=== PATIENT | female | born 1945 | race Two or more races ===

== ENCOUNTER 2025-04-04 09:28 | Emergency (ER) | payer OTHER ==
[~2025-04-04] VITALS: Ht 160 cm; Wt 63.5 kg
[2025-04-04] MEDS ORDERED: SYNTHROID75 MCG PO (09:45)
[2025-04-04] MEDS ORDERED: LOSARTAN POTASS50 MG PO (09:45)
[2025-04-04] MEDS ORDERED: SIMVASTATIN40 MG PO (09:46)
[2025-04-04] MEDS ORDERED: RINGERS SOLUTION,LACTATED 1,000 ML IV STA (10:05)
[2025-04-04] MEDS ORDERED: CIPROFLOXACIN IN 5 % DEXTROSE 400 MG/200 ML PIGGYBAG IV STA (10:06)
[2025-04-04] MEDS ORDERED: METRONIDAZOLE/SODIUM CHLORIDE 500 MG/100 ML PIGGYBACK IV STA (10:06)
[2025-04-04] MEDS ORDERED: MORPHINE SULFATE 4 MG/ML VIAL IV STA (10:07)
[2025-04-04] MEDS ORDERED: METRONIDAZOLE/SODIUM CHLORIDE 500 MG/100 ML PIGGYBACK IV ONE ×2 (10:17→10:18)
[2025-04-04] MEDS ORDERED: CIPROFLOXACIN IN 5 % DEXTROSE 400 MG/200 ML PIGGYBAG IV ONE (10:17)
[2025-04-04] MEDS ORDERED: HYOSCYAMINE SULFATE 0.125 MG TAB.SUBL SL STA (10:26)
[2025-04-04] MEDS ORDERED: HYOSCYAMINE SULFATE 0.125 MG TAB.SUBL ONE (10:52)
[2025-04-04 10:56] LABS: BASO % 0.3 % (0.1-1.2); EOS # 0.12 (0.04-0.54); HEMATOCRIT 35.5 % (34.1-44.9); HEMOGLOBIN 12.2 g/dL (11.2-15.7); LYMPH # 1.42 (1.18-3.74); LYMPH % 12.1 % (19.3-53.1); MEAN CORPUSCULAR HEMOGLOBIN 29.3 pg (25.6-32.2); NEUT % 80.3 % (34.0-71.1); PLATELET COUNT 213 K/uL (163-369); RED BLOOD COUNT 4.16 M/uL (3.93-5.22); RED CELL DISTRIBUTION WIDTH 13.6 % (11.6-14.4)
[2025-04-04 12:05] LABS: ALBUMIN 3.5 gm/dL (3.4-5.0); ALKALINE PHOSPHATASE 105 U/L (50-136); ALT/SGPT 15 U/L (12-78); ANION GAP 8 (10.0-20.0); AST/SGOT 17 U/L (15-37); BILIRUBIN TOTAL 0.25 mg/dL (0.3-1.2); BILIRUBIN,CONJUGATED < 0.10 mg/dL (0.0-0.2); BILIRUBIN,UNCONJUGATED 0.15 mg/dL (0.0-0.6); BLOOD UREA NITROGEN 17 mg/dL (7-18); BUN CREA RATIO 22 (7.0-25.0); CALCIUM 8.6 mg/dL (8.5-10.1); CARBON DIOXIDE 25 mEq/L (21-32); CHLORIDE 111 mmol/L (98-107); CREATININE SERUM 0.78 mg/dL (0.55-1.02); GFR 71.43; GLUCOSE FASTING 95 mg/dL (65-100); OSMOLALITY SERUM 281 MOSM/KG (275-295); POTASSIUM 4.18 mEq/L (3.5-5.1); SODIUM 140 mmol/L (136-145); TOTAL PROTEIN 6.6 gm/dL (6.4-8.2)
[2025-04-04 14:55] LABS: PH,URINE 6.5 (5.0-8.0); URINE APPEARANCE Clear; URINE BILIRRUBIN Negative (NEGATIVE); URINE BLOOD Negative; URINE COLOR Yellow; URINE GLUCOSE Negative (NEGATIVE); URINE KETONE Negative (NEGATIVE); URINE LEUKOCYTE Small; URINE NITRATE Negative; URINE PROTEIN Negative (NEGATIVE); URINE UROBILINOGEN 0.2 E.U./dl
[2025-04-04 15:00] LABS: URINE BACTERIA 189.7 uL (0.0-1933); URINE EPITHELIAL CELLS 3.6 uL (0.0-38.8); URINE RBC 7.6 uL (0.0-20.8); URINE WBC 10.6 uL (0.0-23.2)
== END 2025-04-04 18:29 | disposition home or self-care (01) ==
LOC: ER 09:28
PROVIDERS: General Practice
DX: K57.32 Diverticulitis of large intestine without perforation or abscess without bleeding (principal); R10.9 Unspecified abdominal pain; Z88.0 Allergy status to penicillin; Z91.013 Allergy to seafood; E78.00 Pure hypercholesterolemia, unspecified; E03.8 Other specified hypothyroidism; I10 Essential (primary) hypertension; E11.9 Type 2 diabetes mellitus without complications
CPT/HCPCS: 36415; 74176; 96365; 99284; J0744; J3490